=== PATIENT | female | born 1960 | race Caucasian/White ===

== ENCOUNTER → 2016-11-14 | Outpatient (CLI) | payer OTHER | LOC: CIMAGING 12:12 | PROVIDERS: ATTEND Family Medicine | DX: Z12.31 Encounter for screening mammogram for malignant neoplasm of breast (principal) | CPT/HCPCS: G0202 ==

== ENCOUNTER → 2017-04-20 | Outpatient (CLI) | payer OTHER | LOC: FIMAGING 13:19 | PROVIDERS: ATTEND Family Medicine | DX: M79.662 Pain in left lower leg (principal) ==

== ENCOUNTER 2017-10-03 11:43 | Inpatient (IN) | payer OTHER ==
--- NOTE | 2017-10-02 18:29 | PDGENHP ---
History & Physical Chief Complaint: Left knee osteoarthritis History of Present Illness: Becky is a pleasant 57 year old female who presented to our office with left knee osteoarthritis. She had exhausted conservative treatment and her symptoms were affecting her daily life. She would like to proceed with total knee arthroplasty. Pertinent Past, Social, Family History: PMH: cancer, hyperlipidemia, HTN. FH: non-contributory. Surgical history: oncology surgery in 1996. Social history: non-smoker Relevant Physical Exam: Physical exam of the left knee demonstrates moderate effusion. She has a postive grind sign through the patella and has pain with this test. She has exquisite tenderness overlying the medial > lateral osteochondral junction of the tibia and femur as well as the lateral patellar facet. She is tender overlying the medial joint line, but not the lateral joint line. She has mild tenderness overlying the distal ITB and pes anserinus. Distal neurovascularity intact upon a limited exam. Cardiorespiratory Assessment: CTAB, RRR
[2017-10-03] MEDS ORDERED: TRANEXAMIC ACID 3,000 MG in NS (SYRINGE) 50 ML IRR ONE (11:59)
[2017-10-03] MEDS ORDERED: ceFAZolin 2 GM/DEXTROSE 100 ML IV ONE (11:59)
[2017-10-03] MEDS ORDERED: ROPIVACAINE 0.2% 80 MG, EPINEPHrine 0.2 MG, KETOROLAC TROMETHAMINE 30 MG, morphINE 10 M... IU ONE (11:59)
[2017-10-03] MEDS ORDERED: LR 1,000 ML IV ONE (12:00)
--- NOTE | 2017-10-03 12:14 | PDHPUP ---
History & Physical Update H&P update statement: This history and physical update is based on an assessment of the patient which was completed after admission or registration (within 24 hours), but prior to the surgery/procedure. H&P update: H&P reviewed & patient examined, no change in patient's condition since H&P completed
[2017-10-03] MEDS ORDERED: BACITRACIN 50,000 UNITS/10 ML SYR IRR ONE (12:48)
[2017-10-03] MEDS ORDERED: BUPIVACAINE/EPI 0.5% 30 ML SDV ONE (12:48)
[2017-10-03] MEDS ORDERED: POLYMYXIN B SULFATE 500,000 UNIT/10 ML SYR IRR ONE (12:48)
[2017-10-03] MEDS ORDERED: CALCIUM CHLORIDE 1 GM/10 ML INJ ONE (12:48)
[2017-10-03] MEDS ORDERED: THROMBIN (BOVINE) 5,000 UNIT VIAL TP ONE (12:48)
[2017-10-03] MEDS ORDERED: MIDAZOLAM 2 MG/2 ML VIAL IVP ONE (12:55)
--- NOTE | 2017-10-03 12:57 | PDANEPAE ---
ANE Past Medical History - Cardiovascular History Hx Hypertension: Yes Hx Arrhythmias: No Hx Chest Pain: No Hx Coronary Artery / Peripheral Vascular Disease: No Hx CHF / Valvular Disease: No Hx Palpitations: No - Pulmonary History Hx COPD: No Hx Asthma/Reactive Airway Disease: No Hx Recent Upper Respiratory Infection: No Hx Oxygen in Use at Home: No Hx Sleep Apnea: No Sleep Apnea Screening Result - Last Documented: Positive - Neurologic History Hx Cerebrovascular Accident: No Hx Seizures: No Hx Dementia: No - Endocrine History Hx Diabetes: No Obesity: moderate - Renal History Hx Renal Disorders: No - Liver History Hx Hepatic Disorders: No - Neurological & Psychiatric Hx Hx Neurological and Psychiatric Disorders: No - Cancer History Hx Cancer: Yes Cancer History Comment: ovarian - Congenital Disorder History Hx Congenital Disorders: No - GI History GERD: no Hx Gastrointestinal Disorders: No - Other Health History Other Health History: none - Chronic Pain History Chronic Pain: No - Surgical History Prior Surgeries: none in last 5 yrs. 1996 IVONNE/BSO ANE Review of Systems Review of Systems: - Exercise capacity METS (RN): 4 METS ANE Patient History - Allergies Allergies/Adverse Reactions: No Known Allergies Allergy (Verified 09/28/17 11:31) - Home Medications Home medications: home medication list seen and reviewed Home Medications: Acetaminophen [Tylenol 325mg (*)] 325 mg PO Q6HRS PRN 09/28/17 [Last Taken 10/01] Aspirin [Aspirin 81mg (*)] 81 mg PO DAILY 09/28/17 [Last Taken 09/27/17] Calcium Carbonate [Oyster Shell Calcium 500 mg (*)] 500 mg PO DAILY 09/28/17 [ Last Taken 09/27/17] Carboxymethylcellulose 1% [Refresh Celluvisc (*)] 1 drop EACHEYE DAILY PRN 09/28 [Last Taken 10/03/17] Cholecalciferol Vit D3 [Vitamin D3 (*)] 1,000 units PO DAILY 09/28/17 [Last Taken 09/27/17] Estradiol [Estradiol 1 MG (*)] 0.5 mg PO WE 09/28/17 [Last Taken 09/27/17] Glucosamine Sulfate [Glucosamine Sulfate 500 MG (*)] 500 mg PO DAILY 09/28/17 [ Last Taken 09/27/17] Herbals/Supplements -Info Only 1 ea PO DAILY 09/28/17 [Last Taken 09/28/17] Multivitamins [Multivitamin (*)] 1 each PO DAILY 09/28/17 [Last Taken 09/27/17] [place]-3 Fatty Acids [Fish Oil 1000 mg (*)] 1,000 mg PO DAILY 09/28/17 [Last Taken 09/27/17] Triamterene/Hctz 37.5/25 [Maxzide-25 (*)] 1 tab PO DAILY 09/28/17 [Last Taken ] - NPO status NPO Status: no food or drink >8 hours NPO Since - Liquids (Date): 10/02/17 NPO Since - Liquids (Time): 22:00 NPO Since - Solids (Date): 10/02/17 NPO Since - Solids (Time): 19:00 - Anes Hx Anes Hx: no prior problems - Smoking Hx Smoking Status: Never smoked - Family Anes Hx Family Hx Anesthesia Complications: none ANE Labs/Vital Signs - Vital Signs Blood Pressure: 171/83 Heart Rate: 68 Respiratory Rate: 16 O2 Sat (%): 94 Height: 162.56 cm Weight: 99.79 kg ANE Physical Exam - Airway Neck exam: FROM Mallampati Score: Class 2 Mouth exam: normal dental/mouth exam - Pulmonary Pulmonary: no respiratory distress, no rales or rhonchi, clear to auscultation - Cardiovascular Cardiovascular: regular rate and rhythym, no murmur, rub, or gallop - ASA Status ASA Status: II ANE Anesthesia Plan Anesthesia Plan: spinal Regional Anesthesia: adductor canal FNB
[2017-10-03] MEDS ORDERED: fentaNYL 100 MCG/2 ML INJ ONE (13:01)
[2017-10-03] MEDS ORDERED: PROPOFOL/EMULSION 500 MG/50 ML BOTTLE IV ONE (13:01)
[2017-10-03] MEDS ORDERED: DEXAMETHASONE 4 MG/ML VIAL ONE ×2 (13:02)
[2017-10-03] MEDS ORDERED: MIDAZOLAM 2 MG/2 ML VIAL ONE (13:09)
[2017-10-03] MEDS ORDERED: BUPIVACAINE 0.25% 30 ML SDV ONE (13:18)
[2017-10-03] MEDS ORDERED: PROPOFOL 200 MG/20 ML VIAL ONE (15:18)
[2017-10-03] MEDS ORDERED: PROMETHAZINE HCL 25 MG/ML INJ IVP PRN ×2 (15:24→15:46)
[2017-10-03] MEDS ORDERED: HYDROCODONE/APAP 5/325 TAB PO PRN (15:24)
[2017-10-03] MEDS ORDERED: ACETAMINOPHEN 500 MG TAB PO PRN (15:24)
[2017-10-03] MEDS ORDERED: NALOXONE HCL 0.4 MG/ML INJ IVP PRN (15:24)
[2017-10-03] MEDS ORDERED: ONDANSETRON 4 MG/2 ML VIAL IVP PRN (15:24)
[2017-10-03] MEDS ORDERED: LR 500 ML IV PRN (15:24)
[2017-10-03] MEDS ORDERED: oxyCODONE IR 5 MG TAB PO PRN (15:24)
[2017-10-03] MEDS ORDERED: fentaNYL 100 MCG/2 ML INJ IVP PRN (15:24)
[2017-10-03] MEDS ORDERED: LABETALOL HCL 5 MG/ML 20 ML MDV IVP PRN (15:24)
[2017-10-03] MEDS ORDERED: TAPENTADOL HCL 50 MG TAB PO PRN (15:46)
[2017-10-03] MEDS ORDERED: DIPHENOXYLATE/ATROPINE LOMOTIL 1 TAB PO PRN (15:46)
[2017-10-03] MEDS ORDERED: TEMAZEPAM 15 MG CAP PO PRN (15:46)
[2017-10-03] MEDS ORDERED: diphenhydrAMINE 25 MG CAP PO PRN (15:46)
[2017-10-03] MEDS ORDERED: PROMETHAZINE HCL 25 MG SUPPR PR PRN (15:46)
[2017-10-03] MEDS ORDERED: LACTULOSE 20 GM/30 ML UDCUP PO PRN (15:46)
[2017-10-03] MEDS ORDERED: BISACODYL 10 MG SUPP PR PRN (15:46)
[2017-10-03] MEDS ORDERED: MAGNESIUM HYDROXIDE 30 ML UDCUP PO PRN (15:46)
[2017-10-03] MEDS ORDERED: METOCLOPRAMIDE 10 MG/2 ML VIAL IVP PRN (15:46)
[2017-10-03] MEDS ORDERED: ONDANSETRON DISINTEGRATING 4 MG TAB PO PRN (15:46)
[2017-10-03] MEDS ORDERED: CYCLOBENZAPRINE 10 MG TAB PO PRN (15:46)
[2017-10-03] MEDS ORDERED: POLYETHYLENE GLYCOL 3350 17 GM PKT PO PRN (15:46)
--- NOTE | 2017-10-03 15:46 | POSTOPPROG ---
Post Op Note Date of Operation: 10/03/17 Surgeon: Daiana Haynes Pricing Clerk: coltrain Anesthesia: Epidural, IV Sedation Pre-op Diagnosis: l knee oa Procedure: l tkr Inf/Abcess present in the surg proc area at time of surgery?: No Depth: Deep Incisional (Fascial) EBL: 100-500
[2017-10-03] MEDS ORDERED: CARBOXYMETHYLCELLULOSE 1% 0.4 ML DROPERETTE EACHEYE PRN (15:48)
[2017-10-03] MEDS ORDERED: LR 1,000 ML IV SCH (16:00)
--- NOTE | 2017-10-03 16:16 | POSTANESTH ---
Post Anesthetic Evaluation Cardiovascular Status: Normal, Stable, Similar to Pre-Op Cond Respiratory Status: Normal, Stable, Similar to Pre-op Cond. Level of Consciousness/Mental Status: Can Participate in Eval, Mildly Sleepy, Arousable Pain Control: Adequate, Prn Tx Ordered Nausea/Vomiting Control: Adequate, Prn Tx Ordered Complications Possibly Related to Anesthesia: None Noted (L Adductor Canal nerve block performed in PACU.)
--- NOTE | 2017-10-03 16:16 | GOP ---
[f rep st] OPERATIVE REPORT DATE OF OPERATION: 10/03/2017 SURGEON: Daiana Haynes MD LABEL TACKER: Guy Adhikari, VINAYA, LSA, whose presence was medically necessary. ANESTHESIA: Epidural plus IV sedation. PREOPERATIVE DIAGNOSIS: Left knee osteoarthritis. POSTOPERATIVE DIAGNOSIS: Left knee osteoarthritis. PROCEDURE PERFORMED: Left total knee arthroplasty. FINDINGS: INDICATIONS: This is a 57-year-old female with a several year history of left knee pain worsening wi th use and with time despite multiple conservative measures. Radiological exam reveals [id number] osteoarthritic changes. She wishes to have surgery in order to resolve the problem. DESCRIPTION OF PROCEDURE: The patient brought to the operating room after the left side had been mai ntified as correct side by the patient, nurse and physician. Once in the operating room she was given an epidural nerve block and then given IV sedation. She was placed supine on the operating room tab le. She had a tourniquet placed around the upper portion of the left thigh, and the left lower extre mity then sterilely prepped and draped in usual fashion using a GSI solution. Once prepped and drape d, the limb was exsanguinated, tourniquet inflated to 250 mmHg. A linear incision was made on the an terior portion of the knee, 1 handbreadth above and below the patella, with sharp dissection carried down through subcutaneous layers, with bleeding controlled using electrocautery. Medial parapatellar incision was made through the extensor mechanism, with the patella brought to the side but not alejandro ed. The ACL as well as medial and lateral meniscus were removed. She was noted to have grade 4 sandra dral changes of the medial compartment and extensive grade 3 chondral changes of the patellofemoral c omponent and grade 2 laterally. Osteophytes were removed from the medial femoral condyle. A drill h ole was made 1 cm anterior to the intercondylar notch. We then measured with guide placed within the femur and then cutting guide set at 10 mm of bone removal and 5 degrees of valgus. Once pinned into place, the intramedullary guide was removed. An oscillating saw was used to remove the distal end o f the femur. Once achieving a flat cut osteotome was used to remove the cartilage off the posterior condyles of the femur and a sizing guide placed on the cut surface of the femur noting a size 3 seeme d to fit best. Therefore, drill holes were made and a size 3, 4-in-1 cutting block was put into plac e with the anterior posterior chamfer cuts made. A size 3 trial was put into place and noted to fit securely. The knee was able to achieve full extension, suggesting adequate amount of bone removed an d lug holes were drilled for the femoral component. Femoral trial was then removed. The knee was br ought to maximal flexion, tibia subluxed anteriorly, and an external tibial guide put into place, set in neutral varus valgus and slight posterior slope. It was set to remove 2 mm of bone from the low side of the tibia which was the medial side. Once pinned into place, a drop dallin was used to ensure p elias positioning. Once positioning was ensured, locking pin was then placed in the cutting guide. Oscillating saw was used to remove the proximal portion of the tibia. Once removed, a trial femur, t ibia, and liner were put into place. The knee was able to achieve full extension, suggesting an adeq uate amount of bone had been removed. Trials were then removed from the knee. The knee brought back to full flexion. The pins were removed from the proximal tibia. Multiple sizes were tried on the p roximal tibia. A size 3 seemed to fit best, was placed in slight external rotation, pinned into plac e and a keel punch passed through the trial. Once in position the trial was removed. The knee was b rought to full extension. The patella was then everted, was measured to be 22 mm in thickness. Osci llating saw was used to remove the posterior portion of the patella, leaving 14 mm of bone. Multiple sizes were trialed on the cut surface, noted a 32 mm button fit best and lug holes drilled for 32 mm patellar button. All cut surfaces of bone were then thoroughly irrigated with an antibiotic solutio n. A size 3 Triathlon [employer] tibial component was then put into place and noted to fit securely a nd a size 3 cruciate retaining left Triathlon press-fit component from [place] was placed onto the fe mur. Trial liner was placed in the tibial tray. The knee brought to full extension. A 32 mm asymme tric Tri[employer] patellar component was then placed onto the knee cap. Once in place, multip le trials were placed in the tibial tray and noted a 13 mm liner seemed to fit best. Therefore, a si ze 3, 13 mm polyethylene liner was placed in the tibial tray. Once in place, the joint cocktail was injected into the posterior portion of the capsule along the periosteum of the femur, the tibia and i nto the extensor mechanism. Tranexamic acid was irrigated through the wound. The tourniquet was rel eased at 42 minutes. Bleeding was controlled using electrocautery. The wound was then closed in lay ers to include 0 Vicryl suture in a [id number]-[id number] type stitch for the extensor mechanism, with plas ma gel placed intra-articularly. 0 Vicryl and 2-0 Vicryl suture used for the subcutaneous layers wit h plasma gel placed external to the extensor mechanism, and a 3-0 V-Loc suture in a running subcuticu lar stitch for the skin. 30 cc of Marcaine was infused around the actual skin incision. Wound was t hen dressed with Steri-Strips, Xeroform, 4 x 4's, wrapped in Kerlix. Leg was completely undraped in the operating room, tourniquet removed from the thigh and an Chevy wrap placed around the knee. Patient was then transferred onto a stretcher, and sent to recovery room in good condition. TOURNIQUET TIME: 42 minutes. /[id number]/MODL
--- NOTE | 2017-10-03 18:56 | PDMN ---
Medical Necessity [place] [facility] [place] A-2 [place]: L TKA -pt with PMH cancer, hyperlipidemia, HTN approved per surg fax from office auth # [id number] CPT 93540
[2017-10-03] MEDS: KETOROLAC 15 MG/1 ML SDV IVP SCH (19:06)
[2017-10-03] MEDS: traMADol 50 MG TAB PO SCH (19:09)
[2017-10-03] MEDS: ACETAMINOPHEN 325 MG TAB PO SCH (19:09)
[2017-10-03] MEDS: SENNOSIDES/DOCUSATE SODIUM TAB PO SCH (22:09)
[2017-10-03] MEDS: FAMOTIDINE 20 MG TAB PO SCH (22:09)
[2017-10-03] MEDS: ceFAZolin 2 GM/DEXTROSE 100 ML IV SCH (22:10)
[2017-10-04] MEDS: KETOROLAC 15 MG/1 ML SDV IVP SCH ×3 (00:32→11:19)
[2017-10-04] MEDS: ACETAMINOPHEN 325 MG TAB PO SCH ×3 (00:32→11:18)
[2017-10-04] MEDS: ONDANSETRON 4 MG/2 ML VIAL IVP PRN ×2 (00:32→05:14)
[2017-10-04] MEDS: traMADol 50 MG TAB PO SCH ×3 (00:33→11:17)
[2017-10-04] MEDS: ceFAZolin 2 GM/DEXTROSE 100 ML IV SCH (05:14)
[2017-10-04] MEDS ORDERED: ESTRADIOL 1 MG TAB PO SCH (09:00)
[2017-10-04] MEDS ORDERED: RIVAROXABAN 10 MG TAB PO SCH (09:00)
[2017-10-04] MEDS ORDERED: TRIAMTERENE/HCTZ 37.5/25 1 EACH TAB PO SCH (09:00)
[2017-10-04] MEDS: SENNOSIDES/DOCUSATE SODIUM TAB PO SCH (09:10)
[2017-10-04] MEDS: FAMOTIDINE 20 MG TAB PO SCH (09:11)
[2017-10-04 12:06] VITALS: BP 145/76
--- NOTE | 2017-10-04 14:21 | ASMTLACE ---
LACE Length of stay for Answers: 2 days current admission Acuity / Level of Answers: Yes Care: Did the patient have an inpatient admission? Comorbidities - select Answers: Any tumor (including all that apply lymphoma or leukemia) Other Notes: HTN; HLD # of Emergency department Answers: 0 visits in the last 6 months Score: 8 Date Signed: 10/04/2017 02:20 PM Electronically Signed By:JUSTUS Kothari
--- NOTE | 2017-10-04 14:22 | ASMTCMCOM ---
CM Note CM Note Notes: Pt had planned OA of knee. OT rec home, PT rec outpatient. Pt medically stable for d/c with spouse, no CM d/c needs identified. Date Signed: 10/04/2017 02:21 PM Electronically Signed By:JUSTUS Kothari
== END 2017-10-04 15:06 | disposition home or self-care (01) | DRG 470 ==
LOC: F3N 11:43
PROVIDERS: ADMIT Orthopaedic Surgery; ATTEND Orthopaedic Surgery
PROC: 0SRD0JZ Replacement of Left Knee Joint with Synthetic Substitute, Open Approach (ICD-10-PCS; principal; 2017-10-03 13:30)
DX: M17.12 Unilateral primary osteoarthritis, left knee (principal); E78.5 Hyperlipidemia, unspecified; I10 Essential (primary) hypertension; Z85.43 Personal history of malignant neoplasm of ovary
CPT/HCPCS: 97116-GP; 97161-GP; 97165-GO; J0171; J0690; J1100; J1885; J2250; J2270; J2405; J2704; J2795; J3010